=== PATIENT | male | born 1975 | race Caucasian/White ===

== ENCOUNTER 2019-01-14 11:06 | Inpatient (IN) ==
[2019-01-14] MEDS ORDERED: NS 1,000 ML IV PRN (11:35)
[2019-01-14] MEDS ORDERED: CATAPRES PO ONE (11:47)
--- NOTE | 2019-01-14 12:06 | EKG Report ---
Test Performed on : 01/14/2019 11:22:57 AM Test Reason : Stroke like symptoms Blood Pressure : / mmHG Vent. Rate : 087 BPM Atrial Rate : 087 BPM P-R Int : 120 ms QRS Dur : 100 ms QT Int : 356 ms P-R-T Axes : 059 045 038 degrees QTc Int : 428 ms Normal sinus rhythm. Normal ECG When compared with ECG of 04-SEP-2017 15:41, No significant change was found Unconfirmed Result
--- NOTE | 2019-01-14 12:13 | Diag Imaging Result Doc PS360 ---
EXAM: CT HEAD W/O CONTRAST HISTORY: stroke like symptoms TECHNIQUE: CT head without contrast COMPARISON: 02/06/2017 FINDINGS: No parenchymal hemorrhage. No epidural or subdural hematoma. No subarachnoid hemorrhage. There is a hypodense area in the right parieto-occipital region. This was not present on the prior exam. No mass identified on this noncontrasted exam. No hydrocephalus. No sinus opacification. Thick left calvarium similar to the prior exam. IMPRESSION: Subacute right parieto-occipital infarct. This report was discussed with Dr. Barrera in the emergency room on 01/14/2019 at 12:10 PM and was readback. This exam was performed using automated exposure control, adjustment of mA or kV according to patient size, and/or use of iterative reconstruction technique. Electronically signed by lAfred Laura 01/14/2019 12:10 PM
[2019-01-14 12:14] LABS: BASO# 0.02 X1000 (0.0-0.2); BASO% 0.3 % (0.0-0.8); EOS# 0.09 X1000 (0.0-0.7); EOS% 1.4 % (0.0-10.0); IMM GRAN# 0.04 X1000 (0.0-0.04); IMM GRAN% 0.6 % (0.0-0.5); LYMPH# 2.66 X1000 (1.2-3.4); LYMPH% 41.8 % (20.5-51.1); MCH 29.1 PG (27-31); MCHC 35.7 g/dL (33-37); MCV 81.4 FL (81-99); MONO# 0.62 X1000 (0.11-0.59); MONO% 9.7 % (1.7-9.3); MPV 9.6 FL (7.4-10.4); NEUT# 2.94 X1000 (1.4-6.5); NEUT% 46.2 % (42.2-75.2); PLT 170 X1000 (130-400); RBC 5.16 XMIL (4.7-6.1); WBC 6.37 X1000 (4.8-10.8)
[2019-01-14] MEDS ORDERED: ASPIRIN PO ONE (12:14)
--- NOTE | 2019-01-14 12:18 | Diag Imaging Result Doc PS360 ---
EXAM: CHEST-PORTABLE HISTORY: stroke like symptoms TECHNIQUE: Single view COMPARISON: None. FINDINGS: The lungs are well expanded. The heart is nonenlarged although there is a prominent pericardial fat pad. The vessels are not distended. There are no infiltrates. No effusion identified. Old left rib fractures. IMPRESSION: Stable chest Electronically signed by Alfred Laura 01/14/2019 12:16 PM
[2019-01-14 12:29] LABS: AGAP 10; ALBUMIN 4.3 g/dL (3.5-5.0); ALKALINE PHOSPHATASE 65 U/L (32-122); BUN 8 mg/dL (8-22); CALCIUM 9.2 mg/dL (8.8-10.2); CHLORIDE 103 mmol/L (98-107); COSMO 286; CREATININE 0.7 mg/dL (0.7-1.2); ESTIMATED GFR > 60; GLUCOSE 207 mg/dL (70-104); GOT 15 U/L (10-34); GPT 30 U/L (10-44); INR 0.93; POTASSIUM 3.6 mmol/L (3.5-5.1); PROTIME 12.9 Seconds (11.0-16.0); SODIUM 141 mmol/L (136-145); TCO2 28 mmol/L (25-35); TOTAL PROTEIN 6.1 g/dL (6.3-8.3)
[2019-01-14 12:30] LABS: PTT 43.9 Seconds (22.3-41.8)
--- NOTE | 2019-01-14 12:40 | PROVIDER DOCUMENTATION ---
This chart was entered by Margarette Ace Scribe, acting as scribe for Félix Barrera MD. HPI-Neurological Disorder - General Chief Complaint: B/P Problems Stated Complaint: STROKE LIKE SYMPTOMS Time Seen by Provider: 01/14/19 11:35 Source: patient Allergies/Adverse Reactions: Patient Allergies Allergy/AdvReac Type Severity Reaction Status Date / Time Penicillins Allergy Unknown Verified 01/14/19 11:37 Home Medications: Home Medication List Medication Instructions Recorded Confirmed Last Taken Type Hydrocodone/Acetaminophen [[place] 10 mg PO BID PRN 11/07/16 01/14/19 06/02/17 21:00 History 10-325 Tablet] Apixaban [Eliquis] 5 mg PO BID 01/14/19 01/14/19 Unknown History Aspirin 1 tab PO DAILY 01/14/19 01/14/19 Unknown History Atorvastatin Calcium 20 mg PO DAILY 01/14/19 01/14/19 Unknown History Labetalol HCl 200 mg PO BID 01/14/19 01/14/19 Unknown History Ticagrelor [Brilinta] 90 mg PO BID 01/14/19 01/14/19 Unknown History Topiramate 50 mg PO DAILY 01/14/19 01/14/19 Unknown History Valsartan/Hydrochlorothiazide 1 tab PO DAILY 01/14/19 01/14/19 Unknown History [Valsartan-Hctz 160-25 mg Tab] - History of Present Illness-Neuro Nature of Presenting Problem: Patient is a 43 year old male who presents with numbness to left arm. States numbness has been present for 2 weeks intermittently. Reports numbness was worse this morning at 0700. History of TIA. States left side blurred vision. Reports he has not been taking his HTN medications. States having a stent placed in October. Severity: reports: mild Onset/Duration: reports: other (2 weeks) Timing: reports: still present, intermittent, getting worse (this am at 0700) Context: reports: other (numbness) Character of Altered Mental Status: reports: N/A Character of Deficits: reports: altered sensation (numbness) New weakness or altered sensation location:: reports: LUE Associated Symptoms: reports: vision changes (blurred vision to left eye) Similar Symptoms Previously?: Yes Recently seen or treated by another doctor?: No Review of Systems - Adult - REVIEW OF SYSTEMS - ADULT Constitutional: reports: no symptoms reported Eyes: reports: see HPI, blurred vision (left eye). denies: eye pain, redness Ears, Nose, Mouth & Throat: reports: no symptoms reported Cardiovascular: reports: no symptoms reported Respiratory: reports: no symptoms reported Gastrointestinal: reports: no symptoms reported Genitourinary: reports: no symptoms reported Musculoskeletal: reports: no symptoms reported Integumentary: reports: no symptoms reported Neurological: reports: see HPI, numbness (left arm). denies: dizziness/vertigo, headache/migraines, syncope Psychiatric: reports: no symptoms reported Endocrine: reports: no symptoms reported Hematologic/Lymphatic: reports: no symptoms reported Allergic/Immunologic: reports: no symptoms reported All Other Systems: Reviewed and Negative Past History - Adult - PAST MEDICAL HISTORY-ADULT Review of Records: reports: Old Records Reviewed, Nursing Assessment Review, Medications Reviewed, Social history reviewed & non-contributory. Major Childhood Illnesses: reports: denies history Cardiovascular: reports: blood clots, CHF, HTN, hyperlipidemia Respiratory: reports: asthma, COPD, sleep apnea Gastrointestinal: reports: denies history Obstetrical/Gynecological: reports: denies history Genitourinary: reports: denies history Musculoskeletal: reports: denies history Neurological: reports: CVA, TIA Psychiatric: reports: depression Endocrine/Immune: reports: Diabetes Other Conditions: reports: denies history - PRIOR SURGERIES/PROCEDURES Surgical/Procedure History: reports: cholecystectomy, other (lung surgery) - IMMUNIZATION STATUS Childhood Immunizations: See Nurse Assessment Flu Vaccine: See Nurse Assessment - FAMILY HISTORY Family History: reviewed, not pertinent - SOCIAL HISTORY Smoking: cigarettes, greater than 1 pack/day Provider spent 3-5 mins advising pt. on dangers of tobacco.: Discussed manners to quit use, and f/u contacts for add'l counseling. Substance Use: denies Physical Exam- Neurological - Physical Exam-Neuro Initial Vital Signs Reviewed: Yes General Appearance: alert, no apparent distress. negative: lethargic Eye Exam: bilateral eye: normal inspection, PERRL, EOMI HENMT: normocephalic/atraumatic, moist mucous membranes. negative: angioedema Head Injury: no evidence of injury. negative: active bleeding, lacerations Respiratory: chest non-tender, lungs clear, normal breath sounds. negative: crackles, rhonchi Cardiovascular: normal peripheral pulses, regular rate, rhythm. negative: tachycardia Abdominal Exam: normal bowel sounds, non tender, soft. negative: guarding, rigid Extremity: normal inspection. 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 negative: abnormal speech, facial droop Motor/Sensory: sensory deficit (numbness to left arm, left leg and left side face.). negative: weak motor strength LUE, weak motor strength LLE Neurologic: sensory deficit (numbness to left arm, left leg and left side face.) . negative: aphasia, motor weakness Integumentary: normal color, normal turgor, warm/dry. negative: diaphoresis, pallor Psych/Mental Status: normal mood/affect, oriented x 3. negative: anxious Progress - PLAN OF CARE/RESULTS Progress/Plan/Lab Results: Vital Signs - 8 hr 01/14/19 11:14 01/14/19 12:26 Temperature 98 F Pulse Rate 89 68 Respiratory Rate 18 22 Blood Pressure 192/132 198/120 O2 Sat by Pulse Oximetry 96 96 Laboratory Results - last 24 hr 01/14/19 01/14/19 01/14/19 11:50 11:50 11:50 WBC 6.37 RBC 5.16 Hgb 15.0 Hct 42.0 MCV 81.4 MCH 29.1 MCHC 35.7 RDW Std Deviation 14.0 Plt Count 170 MPV 9.6 Immature Gran % (Auto) 0.6 H Neut % (Auto) 46.2 Lymph % (Auto) 41.8 Toole % (Auto) 9.7 H Eos % (Auto) 1.4 Baso % (Auto) 0.3 Immature Gran # (Auto) 0.04 Neut # (Auto) 2.94 Lymph # (Auto) 2.66 Toole # (Auto) 0.62 H Eos # (Auto) 0.09 Baso # (Auto) 0.02 PT 12.9 INR 0.93 PTT (Actin FS) 43.9 H Sodium 141 Potassium 3.6 Chloride 103 Carbon Dioxide 28 Anion Gap 10 BUN 8 Creatinine 0.7 Estimated GFR/1.73 m2 > 60 BUN/Creatinine Ratio 11 Glucose 207 H Calculated Osmolality 286 Calcium 9.2 Total Bilirubin 0.80 AST 15 ALT 30 Alkaline Phosphatase 65 Troponin T Total Protein 6.1 L Albumin 4.3 Globulin 2.0 Albumin/Globulin Ratio 2.0 01/14/19 11:50 WBC RBC Hgb Hct MCV MCH MCHC RDW Std Deviation Plt Count MPV Immature Gran % (Auto) Neut % (Auto) Lymph % (Auto) [place] % (Auto) Eos % (Auto) Baso % (Auto) Immature Gran # (Auto) Neut # (Auto) Lymph # (Auto) [place]ole # (Auto) Eos # (Auto) Baso # (Auto) PT INR PTT (Actin FS) Sodium Potassium Chloride Carbon Dioxide Anion Gap BUN Creatinine Estimated GFR/1.73 m2 BUN/Creatinine Ratio Glucose Calculated Osmolality Calcium Total Bilirubin AST ALT Alkaline Phosphatase Troponin T < 0.010 Total Protein Albumin Globulin Albumin/Globulin Ratio Orders Category Date Time Status Cardiac Monitoring DIRECTED Care 01/14/19 11:36 Active Finger Stick Blood Sugar (ED) DIRECTED Care 01/14/19 11:36 Active Misc. NRSG Communication Order DIRECTED Care 01/14/19 11:36 Active Oxygen Therapy- ED Nursing DIRECTED Care 01/14/19 11:36 Active Saline Loc NOW Care 01/14/19 11:36 Active CHEST-PORTABLE [RAD] Stat Exams 01/14/19 11:[address] HEAD W/O CONTRAST [CT] Stat Exams 01/14/19 11:36 Completed CBC WITH ELECTRONIC DIFF [HEME] Stat Lab 01/14/19 11:50 Completed COMPREHENSIVE METABOLIC PANEL [CHEM] Stat Lab 01/14/19 11:50 Completed PROTIME WITH INR [COAG] Stat Lab 01/14/19 11:50 Completed PTT [COAG] Stat Lab 01/14/19 11:50 Completed TROPONIN T Stat Lab 01/14/19 11:[address] W/POSS RFLX CULT [URINALYSIS] Stat Lab 01/14/19 11:50 Received URINE DRUG SCREEN PL Stat Lab 01/14/19 11:50 Received 0.9% Sodium Chloride Inj [Ns] 1,000 ml Med 01/14/19 11:35 Active IV Per Protocol mls/hr Aspirin Med 01/14/19 12:14 Discontinued 325 mg PO NOW ONE Clonidine [Catapres] Med 01/14/19 11:47 Discontinued 0.1 mg PO NOW ONE EKG [EKG] Stat Ther 01/14/19 11:36 Draft Result Diagrams: 01/14/19 11:50 01/14/19 11:50 - EKG 1 Time of EKG reading by physician:: 11:22 EKG Read and Signed by:: Félix Barrera EKG Interpretation (*Must complete 3 of following elements*): Normal Rate: 87 Rhythm: normal sinus rhythm [place]: normal QRS: normal HI Interval: normal ST Wave: normal Comments: normal ECG - XRAY 1 XRAY Study: Chest Impression: See EMR Report ( EXAM: CHEST-PORTABLE HISTORY: stroke like symptoms TECHNIQUE: Single view COMPARISON: None. FINDINGS: The lungs are well expanded. The heart is nonenlarged although there is a prominent pericardial fat pad. The vessels are not distended. There are no infiltrates. No effusion identified. Old left rib fractures. IMPRESSION: Stable chest Electronically signed by Alfred Laura 01/14/2019 12:16 PM 01/14/19 1216 Interpreting Physician: Alfred Laura MD Dictated Date/Time: 01/14/19 1215 cc: Félix Barrera MD; Roxann Garcia) - CT/MRI 1 CT Study: Head Impression: See EMR Report (EXAM: CT HEAD W/O CONTRAST HISTORY: stroke like symptoms TECHNIQUE: CT head without contrast COMPARISON: 02/06/2017 FINDINGS: No parenchymal hemorrhage. No epidural or subdural hematoma. No subarachnoid hemorrhage. There is a hypodense area in the right parieto-occ ipital region. This was not present on the prior exam. No mass identified on this noncontrasted exam. No hydrocephalus. No sinus opacification. Thick left calvarium similar to the prior exam. IMPRESSION: Subacute right parieto- occipital infarct. This report was discussed with Dr. Barrera in the emergency room on 01/14/2019 at 12:10 PM and was readback. This exam was performed using automated exposure control, adjustment of mA or kV according to patient size, and/or use of iterative reconstruction technique. Electronically signed by Alfred Laura 01/14/2019 12:10 PM 01/14/19 1210 Interpreting Physician: Alfred Laura MD Dictated Date/Time: 01/14/19 1208 cc: Félix Barrera MD; Roxann Garcia) - CONSULTS/PCP/HOSPITALIST Notification #1 *Consult/PCP/Hospitalist*: Dr. Laura Time Discussed: 12:10 Reason/Comments: Dr. Barrera consulted with Dr. Laura about patient. Consult Disposition: other (Dr. Luara stated patient's head CT showed subacute right parieto-occipital infarct.) #2 Consult: Dr. Martell Time Discussed: 12:37 Reason/Comments: Dr. Barrera consulted with Dr. Martell about patient Consult Disposition: Admit Departure - Departure Date of Disposition Decision: 01/14/19 Time of Disposition Decision: 12:37 DIAGNOSIS: CVA (cerebral vascular accident), HTN (hypertension) Disposition: ADMITTED INPATIENT 09 Certified Medical Emergency: Emergent Condition: Fair Referrals and Follow-Ups: Roxann Garcia [Primary Care Provider] - - Critical Care Note This patient required my direct & personal management of CC.: No Attestation - Physician/ SAMUEL Attestation Patient care was provided by Advanced Practice Provider:: No The physician spent face to face time with patient:: Yes Advanced Practice Provider documentation review:: Supervising physician onsite and consulted in the evaluation and care of this patient. The physician did have a face to face encounter with the patient. - NIH Stroke Scale NIH Type: Initial Evaluation Level of Consciousness: 0-Alert LOC Questions (ask month and age): 0-Answers Both Correctly LOC Commands (ask to open & close eyes;make a fist, let go): 0-Obeys Both Correctly Best Gaze (horizontal eye movement): 0-Normal Visual (use finger movement, counting or visual threat): 1-Partial Hemianopia Facial Palsy (show teeth or raise eyebrows & close eyes tght: 0-Symmetrical Movement Motor Function-left arm: 0-Normal Motor Function-right arm: 0-Normal Motor Function-left le-Normal Motor Function-right le-Normal Limb Ataxia(yhyfqb-ofty-shaelm, or heel to ziegler): 0-No Ataxia Sensory(pin prick to face,arms,trunk,legs-compare side/side): 1-Mild to Moderate Decrease in Sensation Best Language(name item/read sentence.Ex-Down to Earth): 0-No Aphasia Dysarthria(Pt read words or say words Ex.Mama,Tip-Top,Thanks: 0-Normal Articulation Extinction and Inattention: 0-Normal Modified Scott Score Criteria: 2-slight disability Stroke tPA Guidelines - Inclusion Criteria for IV tPA Onset <3 hours ago *OR* 3-4.5 hours ago: No This chart was documented by the indicated scribe, (Margarette Ace, Benito) and accurately reflects the services I performed and decisions made by me, Félix Barrera MD, as attested by the provider's signature.
[2019-01-14 12:41] LABS: BILIRUBIN URINE NEGATIVE (NEGATIVE); BLOOD URINE NEGATIVE (NEGATIVE); CLARITY CLEAR (CLEAR); COLOR YELLOW; KETONE URINE NEGATIVE (NEGATIVE); LEUKOCYTES URINE NEGATIVE (NEGATIVE); NITRITE URINE NEGATIVE (NEGATIVE); PH URINE 6.5; PROTEIN URINE TRACE mg/dL (NEGATIVE); UROBILINOGEN URINE NORMAL
[2019-01-14 12:42] LABS: URINE BACTERIA 1+ /HFP; URINE CAST NONE SEEN /LPF; URINE CRYSTAL NONE SEEN /HPF; URINE EPITHELIAL CELLS <10 /HPF (<10); URINE RBC <10 /HPF (<10); URINE SOURCE CLEAN CATCH; URINE WBC <10 /HPF (<10); URINE YEAST PRESENT /HPF
[2019-01-14 12:43] LABS: UR AMPHETAMINES QUAL NONE DETECTED (NONE DETECT); UR BARBITUATES QUAL NONE DETECTED (NONE DETECT); UR BENZODIAZEPIN QUAL NONE DETECTED (NONE DETECT); UR CANNABINOIDS QUAL NONE DETECTED (NONE DETECT); UR COCAINE QUAL NONE DETECTED (NONE DETECT); UR METHADONE QUAL NONE DETECTED (NONE DETECT); UR METHAMPHETAMINE QUAL NONE DETECTED (NONE DETECT); UR OPIATES QUAL NONE DETECTED (NONE DETECT); UR OXYCODONE QUAL NONE DETECTED (NONE DETECT); UR PCP QUAL NONE DETECTED (NONE DETECT); UR PROPOXYPHENE QUAL NONE DETECTED (NONE DETECT); UR TCA QUAL NONE DETECTED (NONE DETECT)
--- NOTE | 2019-01-14 14:01 | HISTORY AND PHYSICAL ---
PRIMARY CARE PHYSICIAN: Jaime Garcia MD CHIEF COMPLAINT: Numbness to his left arm that has been present for the past 2 weeks intermittently, but worse this morning. Left blurred vision. Also, he states has not been taking his hypertensive medications. HISTORY OF PRESENTING ILLNESS: This is a 43-year-old male who presents to [facility] ER with complaints of numbness to his left arm that has been intermittent over the past 2 weeks but worse this morning around 7:00 in the morning. He has a history of TIA's. He also states that his vision in his left eye was blurred, and that he has not been taking his medications because he "can't remember". He does state that he had a stent placed in October. When he arrived, his blood pressure was 192/132. His head CT showed a subacute right parieto-occipital infarct, and continued to complain of numbness to his left arm, left leg, and left side of his face. He will be admitted for further evaluation and treatment. PAST MEDICAL HISTORY: DVT, CHF, hypertension, hyperlipidemia, asthma, COPD, sleep apnea, TIA, depression, bipolar, and diabetes type 2. PAST SURGICAL HISTORY: Cholecystectomy and lung surgery. FAMILY HISTORY: Reviewed and noncontributory. SOCIAL HISTORY: He currently lives with family. Smokes a pack to a pack and a half a day. Denied any alcohol or illicit drug use. ALLERGIES: Penicillin. HOME MEDICATIONS: 1. Eliquis 5 mg p.o. b.i.d. 2. Aspirin 81 mg p.o. daily. 3. Atorvastatin 20 mg p.o. daily. 4. [place] 10 1 p.o. b.i.d. p.r.n. 5. Labetalol 200 mg p.o. b.i.d. 6. Brilinta 90 mg p.o. b.i.d. 7. Topiramate 50 mg p.o. daily. 8. Valsartan/hydrochlorothiazide 160/25 p.o. daily. LABORATORY DATA: White blood cell count of 6.37, hemoglobin 15, hematocrit 42, and platelets 170,000. PT and INR of 12.9 and 0.93. Sodium 141, potassium 3.6, chloride 103, CO2 28, BUN of 8, creatinine 0.7, and glucose 207. Troponin was less than 0.010. Urinalysis was negative except for 1+ bacteria. He did have yeast present. Urine drug screen was negative. CT of the head showed a subacute right parieto-occipital infarct. EKG showed normal sinus rhythm at 87. REVIEW OF SYSTEMS: He denied any fever or chills. He had some blurred vision on the left side of his eye. He had numbness to his left arm and leg that have been intermittent over the past 2 weeks, but worse around 7:00 in the morning. Denied any chest pain, coughing, or shortness of breath. Denied any abdominal pain, constipation, diarrhea, burning or hurting with urination. PHYSICAL EXAMINATION: On arrival, he had a temperature of 98 degrees, pulse 89, respirations 18, blood pressure 192/132, and saturating 96% on room air. He was given in the emergency room clonidine 0.1 mg p.o. x1 and an aspirin 325 mg p.o. x1. We will continue to monitor the blood pressure. We will allow for some permissive hypertension due to him having a stroke. HEENT: Normocephalic, atraumatic. Normal ENT inspection. Oropharynx and nares are clear. EYES: Pupils are equal, round, reactive to light and accommodation. Extraocular movements are intact. NECK: Normal inspection. Normal range of motion. LUNGS: Clear to auscultation bilaterally with equal lung expansion and chest wall movement. HEART: Regular rate and rhythm. No murmurs, rubs, or gallops. ABDOMEN: Soft, nontender, nondistended. Bowel sounds are present x4 quadrants. MUSCULOSKELETAL: He had 5/5 strength x4 extremities, but did say he still has numbness and tingling to bilateral upper and lower left extremities and some left-sided facial numbness as well. NEUROLOGICAL: The cranial nerves 2-12 are grossly intact. ASSESSMENT: 1. Acute cerebrovascular accident. 2. Uncontrolled hypertension. 3. Diabetes type 2, uncontrolled with hyperglycemia. 4. Tobacco abuse. PLAN: He will be admitted to the medical unit, placed on telemetry, O2 per protocol. Diabetic diet. We will place on pattern blood sugars with sliding scale insulin. We will do an echocardiogram and carotid Doppler. We will continue his home medications as previously identified, and encourage patient to be compliant with his home medications. He verbalized understanding. We are going to allow for some permissive hypertension, but we will keep a close eye on that. Continue his home antihypertensives that will begin in the morning. We will check a CBC, BMP and lipid profile in the morning. Further orders after seen by attending. Dictated by VERO Aguayo for Fred Martell MD cc: VERO Aguayo MD Boyde J. Harrison, MD
[2019-01-14] MEDS ORDERED: ZOFRAN IV PRN (14:31)
[2019-01-14] MEDS ORDERED: DIFLUCAN PO ONE (14:31)
--- NOTE | 2019-01-14 16:54 | Vascular Study Report ---
EXAM: Carotid Ultrasound HISTORY: Acute CVA TECHNIQUE: Grayscale, duplex, and color Doppler evaluation was performed of the carotid arteries bilaterally. Standard protocol. COMPARISON: None. FINDINGS: There is mild smooth atherosclerotic plaque bilaterally. There are no velocity elevations to suggest hemodynamically significant carotid artery stenosis. ICA/CCA ratios are within normal limits. Bilateral vertebral arterial flow is antegrade. IMPRESSION: No evidence for hemodynamically significant carotid artery stenosis. Estimated stenosis is less than 50% bilaterally. Electronically signed by Gill Pearson 01/14/2019 4:51 PM
[2019-01-14] MEDS: HUMALOG (PARKWAY) SUBQ SCH ×2 (17:02→22:02)
[2019-01-14] MEDS: NORCO-10 PO PRN (17:22)
[2019-01-14] MEDS ORDERED: LIPITOR PO SCH (21:00)
--- NOTE | 2019-01-14 21:12 | ECHO REPORT ---
ORDER DATE: 01/14/2019 INTERPRETING PHYSICIAN: Dr. Marquis REQUESTING PHYSICIAN: Hospitalist service at [facility]. CLINICAL INDICATIONS: Stroke. M-MODE MEASUREMENTS: Left ventricle end diastole: 5.1 cm. Left ventricle end systole: 3.1 cm. Posterior wall: 1.3 cm. Interventricular septum: 1.4 cm. Left atrium: 4.1 cm. Aorta: 3.0 cm. SUMMARY OF 2-DIMENSIONAL IMAGING: The study is difficult. 1. The left ventricular function appears to be within normal range, estimated roughly at 55% to 60%. 2. The aortic valve is grossly normal. 3. The mitral valve also appears to be grossly normal. 4. Pulsed wave Doppler of mitral inflow is "normal." 5. The tissue Doppler of septal and lateral mitral annulus also appears to be grossly normal at 7 or 8 cm. 6. The pulmonic valve is grossly unremarkable. 7. The tricuspid valve is grossly unremarkable. 8. There is no pericardial effusion, mass, and no thrombus. 9. Pulmonary pressure is within normal range at 23 to 28 mmHg. 10.The chambers do not appear to be dilated. 11.Pulmonary venous flow is normal. CONCLUSIONS: In summary, this study is really very difficult. If indeed this patient is suspected to have suffered a stroke and the suspected source is the heart, then a transesophageal echocardiogram needs to be carried out because this echocardiogram really does not rule out the possibility of patent foramen ovale or endocardial vegetation with certainty. Clinical correlation is recommended. cc: MD Keerthi Flowers CRNP
[2019-01-14] MEDS: BRILINTA PO SCH (22:15)
[2019-01-14] MEDS: TRANDATE PO SCH (22:16)
[2019-01-14] MEDS: ELIQUIS PO SCH (22:16)
[2019-01-15] MEDS: TYLENOL PO PRN ×2 (00:26→15:35)
--- NOTE | 2019-01-15 02:30 | HISTORY AND PHYSICAL ---
HISTORY OF PRESENT ILLNESS: The patient presented to the hospital. He is not feeling well. He is noted to have a markedly elevated blood pressure of 180/118. We are going to admit him, attempt to control his blood pressure, monitor his heart, and further orders as needed. cc: Fred Martell MD
[2019-01-15 06:09] LABS: BASO# 0.01 X1000 (0.0-0.2); BASO% 0.2 % (0.0-0.8); EOS# 0.09 X1000 (0.0-0.7); EOS% 1.6 % (0.0-10.0); HEMATOCRIT 39.8 % (42.0-52.0); IMM GRAN# 0.02 X1000 (0.0-0.04); IMM GRAN% 0.3 % (0.0-0.5); LYMPH# 2.79 X1000 (1.2-3.4); LYMPH% 48.8 % (20.5-51.1); MCH 28.8 PG (27-31); MCHC 35.2 g/dL (33-37); MCV 81.9 FL (81-99); MONO# 0.63 X1000 (0.11-0.59); MPV 9.6 FL (7.4-10.4); NEUT# 2.18 X1000 (1.4-6.5); NEUT% 38.1 % (42.2-75.2); PLT 160 X1000 (130-400); RBC 4.86 XMIL (4.7-6.1); RDW 13.9 % (11.5-14.5); WBC 5.72 X1000 (4.8-10.8)
[2019-01-15 06:26] LABS: AGAP 11; BUN 10 mg/dL (8-22); CALCIUM 9.1 mg/dL (8.8-10.2); CHLORIDE 102 mmol/L (98-107); COSMO 282; CREATININE 0.6 mg/dL (0.7-1.2); ESTIMATED GFR > 60; GLUCOSE 167 mg/dL (70-104); POTASSIUM 3.6 mmol/L (3.5-5.1); SODIUM 140 mmol/L (136-145); TCO2 28 mmol/L (25-35)
[2019-01-15] MEDS: NORCO-10 PO PRN (06:54)
[2019-01-15] MEDS: HUMALOG (PARKWAY) SUBQ SCH ×3 (07:17→16:22)
[2019-01-15] MEDS: BRILINTA PO SCH (08:48)
[2019-01-15] MEDS: ELIQUIS PO SCH ×2 (08:50→22:43)
[2019-01-15] MEDS: TRANDATE PO SCH ×2 (08:50→22:42)
[2019-01-15] MEDS ORDERED: TOPAMAX PO SCH (09:00)
[2019-01-15] MEDS ORDERED: ASPIRIN PO SCH (09:00)
[2019-01-15] MEDS ORDERED: HYDROCHLOROTHIAZIDE PO SCH ×2 (09:00)
[2019-01-15] MEDS ORDERED: VALSARTAN PO SCH (09:00)
[2019-01-15] MEDS ORDERED: DIOVAN PO SCH (09:00)
--- NOTE | 2019-01-15 12:28 | Diag Imaging Result Doc PS360 ---
EXAM: MRI BRAIN W/WO CONTRAST INDICATION: cva COMPARISON: CT head dated 01/14/2019. No prior MRI is available for comparison. FINDINGS: There is a known right parieto-occipital acute to early subacute infarct that was also seen on the recent head CT. There are several surrounding smaller acute infarcts that extends more superiorly into the right parietal lobe. There is corresponding T2/FLAIR hyperintensity. Otherwise, the deep white matter signal is unremarkable. There is no discrete intracranial mass, significant mass effect, or intracranial hemorrhage. There is no evidence of abnormal intracranial enhancement. There is prominent thickening of the calvaria overlying the frontal and parietal lobes on the left that is stable as far back as the dated 02/06/2017. 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 There is overlying soft tissue edema that is also stable. IMPRESSION: Right parieto-occipital acute to early subacute infarct that was also seen on a recent CT as detailed above. Electronically signed by Homero Griffin 01/15/2019 12:26 PM
--- NOTE | 2019-01-15 14:02 | Diag Imaging Result Doc PS360 ---
EXAM: CT ANGIOGRAM HEAD HISTORY: cva TECHNIQUE: CT angiogram head with intravenous contrast. Arteriogram protocol with MIP images. COMPARISON: CT head from 01/14/2019 FINDINGS: Normal flow in the distal internal carotid arteries. Normal filling of the anterior and middle cerebral arteries. No aneurysm. No occlusion or stenosis. There is flow in both posterior cerebral arteries. There are small posterior communicating arteries. This is a normal variant. There has been a recent right occipital infarct. IMPRESSION: No occlusion identified although there is evidence of a recent right occipital infarct. This exam was performed using automated exposure control, adjustment of mA or kV according to patient size, and/or use of iterative reconstruction technique. Electronically signed by Alfred Laura 01/15/2019 1:59 PM
[2019-01-15] MEDS ORDERED: GLUCOPHAGE PO SCH (17:00)
[2019-01-15] MEDS ORDERED: KLONOPIN PO PRN ×2 (17:06→18:36)
[2019-01-15] MEDS ORDERED: NORCO-10 PO PRN (18:36)
[2019-01-15] MEDS ORDERED: ZOFRAN IV PRN (18:40)
[2019-01-15] MEDS ORDERED: TYLENOL PO PRN (18:40)
--- NOTE | 2019-01-15 19:19 | PROGRESS NOTE ---
DATE: 01/15/2019 SUBJECTIVE: Patient has no major complaints. OBJECTIVE: Vital signs: Blood pressure 172/95, heart rate of 66, respiratory rate of 20, temperature 98.3 degrees, 99% on room air. Cardiovascular: Regular rate and rhythm. Pulmonary: Bilateral breath sounds clear to auscultation. GI: Soft, nontender, and nondistended. Bowel sounds are positive. LABS: White count is 5, hemoglobin and hematocrit 14 and 39, platelets 160,000. Basic is normal. PROBLEM LIST: 1. Acute ischemic cerebrovascular accident. We are going to continue treatment and follow. He is already on a pretty good regimen. Apparently, the Brilinta he was taking is causing shortness of breath, which it can cause, and he stopped it. That may have been part of what is going on here. He also still smokes and he is not very compliant with his diabetic medications. He has been threatening to leave against medical advice all day because of wanting to go smoke. In any case, we are going to push for a transesophageal echocardiogram tomorrow. 2. Diabetes. I recommend resuming his metformin. He said he stopped taking it because there was a recall, which I am not aware of any recall. 3. Hypertension is stable. DISPOSITION: We are transferring him to our sister facility so we can get a transesophageal echocardiogram completed on him. cc: Rufus Galan MD
--- NOTE | 2019-01-15 20:11 | CARDIOLOGY CONSULTATION ---
DATE: 01/15/2019 CHIEF COMPLAINT: Issues with numbness in his left arm that have been off and on it sounds like for potentially weeks. Blurred vision. Possible speech issues. HISTORY OF PRESENT ILLNESS: Mr. Anthony is a 43-year-old white male who presented to [facility] yesterday with the above-noted complaints. He reports intermittent compliance with some of his medications including his Brilinta. His blood pressure was markedly elevated on presentation. He subsequently had a head CT that demonstrated a subacute right parietooccipital infarct. The patient denies any chest pain. He has not had any orthopnea. He stopped taking his Brilinta secondary to shortness of breath. PAST MEDICAL HISTORY: 1. Significant for DVT. 2. Hypertension. 3. Hyperlipidemia. 4. Coronary disease with recent PCI performed by Dr. Vences in [place]. 5. COPD/sleep apnea. 6. TIA. 7. Bipolar. 8. Type 2 diabetes. SOCIAL HISTORY: Smokes a pack and half a day. No alcohol or illicit drugs. FAMILY HISTORY: Significant for hypertension. REVIEW OF SYSTEMS: A 10 system review of systems is negative except for those mentioned in HPI. PHYSICAL EXAM: He is afebrile, heart rate 70, his most recent blood pressure 147/84.General: He is in no acute distress. HEENT: Oropharynx is moist. Poor dentition. Eye examination shows pink conjunctivae, white sclerae. Neck: Shows no obvious thyromegaly or thyroid tenderness. Cardiovascular: He sounds to be in a regular rate and rhythm. He has no obvious murmurs. He has no carotid bruits. His JVP is normal. He has no lower extremity edema. Chest: Clear bilaterally. He has no increased work of breathing. Abdomen: Soft, nontender, nondistended. He has no obvious organomegaly. Skin: Warm and dry throughout without any rashes. Neurological: Moving all extremities well. He has no lateralizing deficits other than some mild numbness in his left upper extremity. His speech sounds clear and non garbled. PERTINENT DATA: EKG here shows sinus rhythm. Review of all his EKGs available to us in [facility] system back to 2016 demonstrates sinus rhythm. He had an echocardiogram that was a difficult study showing a preserved ejection fraction, mild to moderate left ventricular hypertrophy. It was not adequate to rule out potential cardiac embolus. His carotid Dopplers show nonsignificant stenosis. His brain MRI demonstrated a right parietooccipital acute to early subacute infarct. His head CTA shows no evidence of any occlusion. His chest x-ray demonstrated unremarkable abnormalities. Lab data shows a white count of 5.7, hematocrit 39, platelet count of 160,000. His sodium is 140, potassium 3.6, his BUN is 10, creatinine 0.6. His LDL is 117. His urine drug screen was unremarkable, UA was unremarkable. ASSESSMENT: Mr. Anthony is a 43-year-old gentleman who has developed a recent stroke. PLAN: At this point, we will proceed with transesophageal echocardiogram tomorrow. Risks, benefits, and alternatives explained to the patient and he agrees to proceed. At this point, I am unclear exactly why he is on the Eliquis at a dose of 5 mg b.i.d. Patient thinks he may have had a history of atrial fibrillation but he is not the best historian. Again I have reviewed his records and do not see history of atrial fibrillation here. We have not been able to obtain records from Dr. Vences. I will discontinue the aspirin and place him on Plavix at 75 mg a day based on his history of recent PCI. He is on high-intensity statin therapy at a dose of atorvastatin 40 mg at bedtime which I agree with. He will be arranged to have the transesophageal echocardiogram tomorrow. cc: Markel Zee MD
[2019-01-15] MEDS ORDERED: LIPITOR PO SCH ×2 (21:00)
[2019-01-15] MEDS: HUMALOG SUBQ SCH (22:44)
[2019-01-16] MEDS: HUMALOG SUBQ SCH (06:31)
[2019-01-16 07:21] LABS: BASO# 0.01 X1000 (0.0-0.2); BASO% 0.2 % (0.0-0.8); EOS# 0.05 X1000 (0.0-0.7); EOS% 0.9 % (0.0-10.0); HEMATOCRIT 41.1 % (42.0-52.0); HEMOGLOBIN 14.5 g/dL (14.0-18.0); IMM GRAN# 0.02 X1000 (0.0-0.04); IMM GRAN% 0.3 % (0.0-0.5); LYMPH# 2.63 X1000 (1.2-3.4); MCH 29.1 PG (27-31); MCHC 35.3 g/dL (33-37); MCV 82.4 FL (81-99); MONO# 0.46 X1000 (0.11-0.59); MPV 9.8 FL (7.4-10.4); NEUT# 2.55 X1000 (1.4-6.5); NEUT% 44.6 % (42.2-75.2); PLT 178 X1000 (130-400); RBC 4.99 XMIL (4.7-6.1); RDW 13.9 % (11.5-14.5); WBC 5.72 X1000 (4.8-10.8)
[2019-01-16 07:25] LABS: INR 1.13; PROTIME 14.7 Seconds (11.0-16.0)
[2019-01-16 07:46] LABS: AGAP 11; BUN 13 mg/dL (8-22); CALCIUM 9.2 mg/dL (8.8-10.2); CHLORIDE 102 mmol/L (98-107); COSMO 289; CREATININE 0.8 mg/dL (0.7-1.2); ESTIMATED GFR > 60; GLUCOSE 168 mg/dL (70-104); MAGNESIUM 1.9 mg/dL (1.5-2.7); POTASSIUM 3.4 mmol/L (3.5-5.1); SODIUM 143 mmol/L (136-145); TCO2 30 mmol/L (25-35)
[2019-01-16] MEDS ORDERED: GLUCOPHAGE PO SCH (08:00)
[2019-01-16] MEDS: ELIQUIS PO SCH (08:29)
[2019-01-16] MEDS: TRANDATE PO SCH (08:29)
[2019-01-16] MEDS ORDERED: PLAVIX PO SCH ×2 (09:00)
[2019-01-16] MEDS ORDERED: DIOVAN PO SCH (09:00)
[2019-01-16] MEDS ORDERED: HYDROCHLOROTHIAZIDE PO SCH (09:00)
[2019-01-16] MEDS ORDERED: TOPAMAX PO SCH (09:00)
[2019-01-16] MEDS ORDERED: ANESTHESIA PB SET 88 IN 5742 ONE (10:18)
[2019-01-16] MEDS ORDERED: NS 1,000 ML ONE (10:18)
[2019-01-16] MEDS ORDERED: XYLOCAINE-MPF 2% ONE (10:30)
[2019-01-16] MEDS ORDERED: ROBINUL ONE (10:30)
[2019-01-16] MEDS ORDERED: DIPRIVAN 1% ONE ×2 (10:30)
[2019-01-16] MEDS ORDERED: LABETALOL IV ONE (11:00)
--- NOTE | 2019-01-16 11:15 | ECHO REPORT ---
ORDER DATE: 01/16/2019 INTERPRETING PHYSICIAN: Dr. Spencer Anderson. INDICATION: Transesophageal echocardiogram to rule out intracardiac mass or thrombus for CVA. DESCRIPTION OF PROCEDURE: Informed consent was obtained from the patient. The patient was brought to the cardiac catheterization laboratory. After informed consent was obtained, the oropharynx was anesthetized using Cetacaine spray, and the patient was given propofol by Anesthesia. Please see detailed anesthesia records. A transesophageal probe was easily passed into the esophagus. Ultrasound pictures were obtained. There were no complications. FINDINGS: 1. Normal left ventricular cavity size. Estimated ejection fraction of 55%. 2. Left atrium was normal. 3. There was a small left atrial appendage, which did not have any clot. 4. Right atrium was normal. 5. Aortic valve leaflets were trileaflet. 6. Mitral valve was normal. 7. Tricuspid valve was normal. 8. Pulmonic valve was normal. 9. Ascending aorta was normal. Distal transverse arch not well visualized. 10. Doppler studies revealed mild mitral regurgitation, mild tricuspid regurgitation. 11. There is no aortic stenosis or regurgitation. 12. Saline contrast study was negative for patent foramen ovale. CONCLUSIONS: 1. Normal left ventricular cavity size. Estimated ejection fraction of 55%. 2. There was no obvious intracardiac mass or thrombus seen. 3. There is no pericardial effusion. cc: MD Markel Villatoro MD
[2019-01-16 12:29] VITALS: BP 177/99
--- NOTE | 2019-01-16 20:14 | CONSULTATION ---
DATE OF CONSULTATION: 01/16/2019 Mr. Anthony is 43 years old and there is evidence of stroke. History from the patient is that he has noticed episodes of left arm heaviness for the last few months, episodes occurring nearly every day, multiple episodes some days, lasting from 15 to 60 minutes. Sometimes, this is associated with numbness over the left side of his face. Speech may have been slurred. He did not have trouble chewing or swallowing. Sometimes vision has been blurred "like looking through a waterfall", but he has not noticed focal loss of visual field or partial field blurring of vision. He has not had diplopia or blindness. He is certain he has not had any symptoms in the left leg. He reports he has been able to stand and walk during episodes of left arm heaviness without gait difficulty. He reports all symptoms resolved completely with prior episodes, but similar symptoms appeared a few days ago have persisted this time. He has had almost constant headache for the last few months. This is mostly right posterior, dull, aching, present throughout the day. Headache is more intense sometimes than others. He reports having episodes of slurred speech, which he believes have been diagnosed as TIA. He reports these episodes also affected his memory, and he cannot provide detailed history. He believes he did not have left-sided weakness with these episodes, but he cannot tell me for certain today whether or not these episodes were associated with other features. He has not checked his blood sugars or blood pressures at the time of a neurologic deficit. Risk factors include hypertension, dyslipidemia, ischemic heart disease, diabetes mellitus type 2. He admits to not taking all of his medicines as directed. He does smoke cigarettes. There is also history of DVT and bipolar disorder. He reports he was taking aspirin and was switched to Eliquis and Brilinta a few months ago. He stopped Brilinta on his own about a month ago and continued Eliquis. On presentation, lab showed PTT 43.9 seconds. This looks to be near his baseline based on old computer records. Blood sugars have ranged 100s to 200s. Triglyceride was 261. Total cholesterol was 164 with LDL 117, VLDL 52, HDL 34. Urine drug screen was all negative. Brain MRI done with and without contrast shows right parieto-occipital infarction with restricted diffusion in that area. CT angiogram of the head was unremarkable. Carotid ultrasound showed no significant stenosis bilaterally. Transesophageal echocardiogram showed no source of embolus and no PFO. He has been afebrile. Heart rate has ranged 60s to 80s. Systolic blood pressures were 190s on admission, 130s to 170s in the last day or so. On exam, Mr. Anthony is awake, alert, attentive. He seems appropriate right now. Speech is not significantly dysarthric. Language function is intact. Memory is good. Head and neck are unremarkable. Visual shen are full, tested grossly by confrontational finger counting. At times, he seemed to count fingers a little more consistently in the right field than the left, but I could not find a consistent visual field cut. I tested his visual shen monocularly and binocularly. Extraocular movements are full. Facial motility is good bilaterally. Facial sensation is intact to pinprick and light touch testing. He reports subjective sense of numbness over the left face, but no loss of pinprick or light touch appreciation. Gag is intact. Tongue is midline. Strength is normal in the right limbs. I can overcome the left arm grading 4/5 at the deltoid, 4+/5 at the wrist extensor, 4/5 in the varnish mixer, 3/5 in the thumb extensor. Strength is good in the left leg. Tone is increased in the left arm. He had difficulty with left [id number] and did well with right [id number]. He reports good pinprick appreciation over the hands. He reports slightly diminished pinprick appreciation in a stocking pattern bilaterally. Proprioception is good at the great toe MTP joint bilaterally. Reflexes are absent at the ankles and 2+ at the knees bilaterally. Plantar response is silent bilaterally. I did not test his gait. IMPRESSION: Subacute right hemisphere infarction. Although he is young, he has multiple risk factors for cerebrovascular ischemic problems. He has had sufficient workup to this point and I do not think we have to do anything further urgently. I encouraged him to be aggressive with management of his blood pressure, blood sugar, lipids. I strongly encouraged him to quit smoking cigarettes. If he has more episodes of neurologic change, as he has reported with the left arm heaviness and with the slurred speech, we might consider electroencephalogram. I suggested he try to check blood sugar and blood pressure when he has an episode. I will be glad to see Mr. Anthony again if needed. Thanks for asking Neurology to see him. cc: Shawn Montaño III, MD MTDD
--- NOTE | 2019-01-17 11:13 | DISCHARGE SUMMARY ---
ADMISSION DATE: 01/14/2019 DISCHARGE DATE: 01/16/2019 DISCHARGE DIAGNOSES: 1. These is an AMA discharge for this patient. 2. Apparently this patient was seen at [facility] for acute cerebrovascular accident, uncontrolled hypertension, diabetes mellitus type 2 uncontrolled with hyperglycemia and tobacco abuse. HOSPITAL COURSE: Patient was evaluated at [facility]. He was transferred to [facility] for further evaluation of the stroke with a CHRISTOPHER which was performed today. It said that there is a normal left ventricular cavity with no obvious intracardiac mass or thrombus. I did order a Neurology consultation as well. Unfortunately, even when he was at [facility] and here today, the patient threatened the medical staff to leave the hospital AMA because he wanted to go to smoke and he was not happy in the hospital. I was about to see this patient this morning when nursing staff reported to me that the patient is going to leave AMA. cc: Carroll Stern MD
== END 2019-01-16 14:33 | disposition left against medical advice (07) | DRG 66 ==
LOC: P.ED 11:06 → P.MEDSURG 13:54 → SUATTDRO 13:54 → 4N 01-15 18:22
PROVIDERS: ATTEND Internal Medicine